=== PATIENT | female | born 1975 | race Caucasian/White ===

== ENCOUNTER → 2020-09-13 | Day surgery (SDC) | payer OTHER ==
[2020-09-12 16:32] VITALS: BMI 28.9
[~2020-09-13] MED LIST: ACETAMINOPHEN 325 MG TABLET (FP) PO PRN; DEXAMETHASONE SOD PHOSPHATE 4 MG/1 ML VIAL ONE; GLYCOPYRROLATE 0.2 MG/1 ML VIAL ONE; KETOROLAC TROMETHAMINE 30 MG/1 ML VIAL ONE; LACTATED RINGERS SOLUTION 1,000 ML IV SCH; LIDOCAINE HCL/PF 2% SDV 5ML VIAL ONE; MIDAZOLAM HCL 2 MG/2 ML SINGLE DOSE VIAL ONE; ONDANSETRON 4 MG/2 ML VIAL IVPUSH PRN; PROPOFOL 20 ML ONE; SUCCINYLCHOLINE CHLORIDE 200 MG/10 ML SYRINGE ONE; ePHEDrine SULFATE 50 MG/1 ML AMPULE ONE; oxyCODONE HCL 5 MG TABLET PO PRN
[2020-09-13 16:34] VITALS: BP 117/71; PULSE 70
[2020-09-13 16:53] VITALS: TEMP 100
== END | disposition home or self-care (01) ==
LOC: JASU-SURG 04:21
PROVIDERS: ATTEND Obstetrics & Gynecology
PROC: 0UC98ZZ Extirpation of Matter from Uterus, Via Natural or Artificial Opening Endoscopic (ICD-10-PCS; principal; 2020-09-13 14:00)
DX: T83.89XA Other specified complication of genitourinary prosthetic devices, implants and grafts, initial encounter (principal); Z30.432 Encounter for removal of intrauterine contraceptive device
CPT/HCPCS: 36415; 81025; 86850; 86900; 86901; 94760